=== PATIENT | female | born 1965 | race Caucasian/White ===

== ENCOUNTER 2021-11-24 10:16 | Outpatient (CLI) | payer BC | END 2021-11-24 10:17 | disposition home or self-care (01) | LOC: MRI 10:16 | PROVIDERS: ATTEND Family Medicine | DX: Z12.31 Encounter for screening mammogram for malignant neoplasm of breast (principal); R51.9 Headache, unspecified; R92.1 Mammographic calcification found on diagnostic imaging of breast; Z82.49 Family history of ischemic heart disease and other diseases of the circulatory system | CPT/HCPCS: 70544; 70551; 77063; 77067 ==

== ENCOUNTER 2021-11-28 14:20 | Outpatient (CLI) | payer BC | END 2021-11-28 14:21 | disposition home or self-care (01) | LOC: BICMAMMO 14:20 | PROVIDERS: ATTEND Family Medicine | DX: R92.2 Inconclusive mammogram (principal); N64.89 Other specified disorders of breast | CPT/HCPCS: G0279 ==

== ENCOUNTER 2022-06-01 14:41 | Outpatient (CLI) | payer BC | END 2022-06-01 14:42 | disposition home or self-care (01) | LOC: BICMAMMO 14:41 | PROVIDERS: ATTEND Family Medicine | DX: R92.8 Other abnormal and inconclusive findings on diagnostic imaging of breast (principal); N64.89 Other specified disorders of breast | CPT/HCPCS: G0279 ==